=== PATIENT | male | born 1950 | race Caucasian/White ===

== ENCOUNTER 2018-04-14 06:01 | Day surgery (SDC) | payer MEDICARE, OTHER ==
[2018-04-14] MEDS ORDERED: MIDAZOLAM 2 MG/2 ML VIAL IVP ONE (06:02)
[2018-04-14] MEDS ORDERED: PHENYLEPHRINE 2.5% OPHTH 2 ML DROPS ONE (06:18)
[2018-04-14] MEDS ORDERED: KETOROLAC 0.45% OPHTH DROPS ONE (06:18)
[2018-04-14] MEDS ORDERED: PROPARACAINE 0.5% OPHTH DROPS 15 ML ONE (06:19)
[2018-04-14] MEDS ORDERED: CYCLOPENTOLATE 1% OPHTH DROPS 2 ML ONE (06:19)
[2018-04-14] MEDS ORDERED: PHENYLEPHRINE 2.5% OPHTH 2 ML DROPS RIGHTEYE ONE (06:40)
[2018-04-14] MEDS ORDERED: PROPARACAINE 0.5% OPHTH DROPS 15 ML RIGHTEYE ONE ×2 (06:40→07:38)
[2018-04-14] MEDS ORDERED: KETOROLAC 0.45% OPHTH DROPS RIGHTEYE ONE (06:40)
[2018-04-14] MEDS ORDERED: CYCLOPENTOLATE 1% OPHTH DROPS 2 ML RIGHTEYE ONE (06:40)
[2018-04-14] MEDS ORDERED: LACTATED RINGERS 500 ML IV ONE (06:42)
[2018-04-14] MEDS ORDERED: EPINEPHrine 1 MG/ML AMP ONE (06:46)
[2018-04-14] MEDS ORDERED: TIMOLOL 0.5% OPHTH DROPS ONE (06:47)
[2018-04-14] MEDS ORDERED: VANCOMYCIN OPHTHALMI 8MG/0.8ML 8 MG/0.8 ML SYRINGE IO ONE ×2 (06:47→07:35)
[2018-04-14] MEDS ORDERED: TRIAMCIN/MOXIFLOX OPHTHALMIC 0.6 ML VIAL IO ONE (06:47)
[2018-04-14] MEDS ORDERED: BSS/LIDOCAINE/EPINEPHRINE 1 ML SYRINGE ONE (06:47)
[2018-04-14] MEDS ORDERED: BRIMONIDINE 0.2% OPHTH DROPS 5 ML ONE (06:47)
--- NOTE | 2018-04-14 07:04 | ANESTHESIA ---
Pre-Anesthesia VS, & Labs - Diagnosis senile combined cataract - Procedure extraction cataract with lens implant Vital Signs: Temp Pulse Resp BP Pulse Ox 36.4 C L 14 131/78 H 99 04/14/18 06:31 04/14/18 06:31 04/14/18 06:31 04/14/18 06:31 Height 5 ft 11 in Weight (kg) 87.2 kg - NPO >8 hours - Lab Results Lab results reviewed: Yes Home Medications and Allergies Home Medications: Ambulatory Orders Medication Instructions Recorded Confirmed Aspirin [Adult Aspirin] 81 mg PO DAILY 04/13/18 04/13/18 Atorvastatin Calcium 40 mg PO DAILY 04/13/18 04/13/18 Brimonidine 0.1% Ophth Drops 1 drops OPTH BID 04/13/18 04/13/18 [Alphagan P 0.1% Ophth Drops] Lisinopril [Prinivil] 20 mg PO DAILY 04/13/18 04/13/18 Multivitamin [Multivitamins] 1 each PO DAILY 04/13/18 04/13/18 Timolol [Betimol] 5 ml OP BID 04/13/18 04/13/18 metFORMIN [Glucophage] 500 mg PO ONCE 04/13/18 04/13/18 Allergies/Adverse Reactions: Allergies Allergy/AdvReac Type Severity Reaction Status Date / Time No Known Drug Allergies Allergy Verified 04/13/18 13:07 Anes History & Medical History - Anesthetic History Anesthesia Complications: reports: No previous complications Family history of Anesthesia Complications: Denies Family history of Malignant Hyperthermia: Denies - Medical History Cardiovascular: reports: Hypertension Pulmonary: reports: Sleep apnea Gastrointestinal: reports: None Urinary: reports: None Musculoskeletal: reports: None Endocrine/Autoimmune: reports: Type 2 diabetes Skin: reports: None - Surgical History Eyes Ears Nose Throat (EENT): Tonsil/Adenoidectomy, Other Urologic: Prostatic surgery Exam General: Alert, Oriented x3, Cooperative, No acute distress Dental: WNL Mouth Openin Fingerbreadth Neck Mobility: Normal Mallampati classification: II Thyromental Distance: greater than 6 cm Respiratory: Lungs clear, Normal breath sounds, No respiratory distress, No accessory muscle use Cardiovascular: Regular rate, Normal S1, Normal S2, No murmurs Mental/Cognitive Status: Alert/Oriented X3, Normal for patient Plan Anesthesia Type: MAC Consent for Procedure(s) Verified and Reviewed: Yes Code Status: Attempt Resuscitation ASA classification: 2-Mild systemic disease Is this case an emergency?: No
[2018-04-14] MEDS ORDERED: BRIMONIDINE 0.2% OPHTH DROPS 5 ML OPTH ONE (07:36)
[2018-04-14] MEDS ORDERED: EPINEPHrine 1 MG/ML AMP IR ONE (07:36)
[2018-04-14] MEDS ORDERED: CHONDR SULF/HYALURONATE SYRINGE IO ONE (07:36)
[2018-04-14] MEDS ORDERED: TIMOLOL 0.5% OPHTH DROPS OPTH ONE (07:37)
[2018-04-14] MEDS ORDERED: BSS/LIDOCAINE/EPINEPHRINE 1 ML SYRINGE IO ONE (07:38)
[2018-04-14] MEDS ORDERED: TRIAMCIN/MOXIFLOX/VANCO 1 ML VIAL IO ONE (07:38)
[2018-04-14 08:16] VITALS: BP 115/69
--- NOTE | 2018-04-14 11:12 | OPERATIVE REPORT ---
DATE OF SERVICE: 04/14/2018 Physician: Steve Juarez MD PREOPERATIVE DIAGNOSIS: Visually significant cataract, right eye. Cataract surgery was performed on the left eye in 2011 by another surgeon. POSTOPERATIVE DIAGNOSIS: Visually significant cataract, right eye. Cataract surgery was performed on the left eye in 2011 by another surgeon. PROCEDURE: Phacoemulsification with posterior chamber intraocular lens implant , right eye. SURGEON: Steve Juarez MD ANESTHESIA: Monitored anesthesia care. COMPLICATIONS: None. OPERATIVE INDICATIONS: This is a 67-year-old man with progressive vision loss in the right eye due to 3+ nuclear sclerotic, 1+ cortical, and trace anterior subcapsular cataract. Best corrected visual acuity was 20/20, with glare to 20/ 40 in the right eye. Indications for surgery are overall decrease in vision, difficulty seeing street signs, difficulty driving in low light or at night, difficulty driving at night because of headlights from other vehicles, and/or street lights, and difficulty with glare or bright lights in any situation. He was consented at length concerning risks and benefits of cataract surgery, after which he expressed a desire to proceed with surgery. OPERATIVE PROCEDURE: The patient was taken to OR #3 and placed under monitored anesthesia care. A surgical timeout was conducted confirming correct patient, correct procedure, and correct surgical site. He was given topical anesthesia and prepped and draped in the usual sterile fashion. The eye was entered at the 12 and 9 o'clock positions. Intracameral Shugarcaine was injected into the anterior chamber, followed by Viscoat. A continuous-tear curvilinear capsulorrhexis was performed. The nucleus was hydrodissected and phacoemulsified. The cortex evacuated using automated infusion and aspiration (I &A). Provisc was injected in the capsular bag and a 19.5 diopter intraocular lens inserted in the bag. Approximately 0.8 mL of a mixture of triamcinolone, moxifloxacin, and vancomycin was injected subconjunctivally in the superior quadrant for infection and inflammation prophylaxis. I&A was used to evacuate viscoelastic material. The eye was inflated to physiologic pressure using balanced salt solution and found to be watertight. The patient was taken from the operating room in good condition and given postoperative instructions. TD: 04/14/2018 08:08 [facility]
== END 2018-04-14 06:02 | disposition home or self-care (01) ==
LOC: SDS 06:01
PROVIDERS: ATTEND Ophthalmology
PROC: 08RK3JZ Replacement of Left Lens with Synthetic Substitute, Percutaneous Approach (ICD-10-PCS; principal; 2018-04-14 07:30)
DX: H25.812 Combined forms of age-related cataract, left eye (principal); E11.9 Type 2 diabetes mellitus without complications; I10 Essential (primary) hypertension; G47.30 Sleep apnea, unspecified; E78.00 Pure hypercholesterolemia, unspecified; Z79.82 Long term (current) use of aspirin; Z79.84 Long term (current) use of oral hypoglycemic drugs; Z85.46 Personal history of malignant neoplasm of prostate
CPT/HCPCS: 66984; A9270; J3490; V2632